=== PATIENT | male | born 1990 | race African-American/Black ===

== ENCOUNTER 2021-01-13 08:01 | Emergency (ER) | payer SELFPAY ==
[~2021-01-13] VITALS: Ht 177.8 cm; Wt 63.6 kg
--- NOTE | 2021-01-13 08:13 | PHYS DOC ---
Past History Past Medical History: Seizure Smoking: Non-smoker Alcohol Use: Occasionally Drug Use: Marijuana Adult General Chief Complaint Chief Complaint: SEIZURE [facility] HPI Patient is a 30-year-old male presenting via EMS for seizure. Patient had a total of 5 seizures this morning, all of which were observed and reported as tonic-clonic in nature. He has a known history of seizures, was diagnosed about 5 years ago. States he has had " a few seizures a year" since that time. Admits he has had significant work-up in outpatient setting by [facility] team, has had prior blood work, CT head, MRI and EEGs that have all been nonconcerning. He subsequently has not been on and not required any antiepileptic medications. States besides seizures he has no other medical issues. Reports it is proposed that his seizures are due to ongoing marijuana abuse. Also admits to occasional alcohol abuse but denies any dependence or history of withdrawals or delirium tremens. Reports yesterday he did not have anything to drink but admits smoking several blunts. He also reported having a headache for which he took an unknown medication from a friend. Denies any falls or trauma but this morning was found to have x5 seizures as discussed all lasting less than 1 minute in nature. Seizures self resolved without any intervention. EMS was finally called after the fifth seizure which worried bystander. On arrival, patient was found to be slightly tachycardic otherwise hemodynamically stable and postictal. On arrival, patient remains postictal, states feelings are similar to prior postictal state. Denies any other major changes in health, no recent febrile illness, recent sick contacts, change in medication Review of Systems Review of Systems Fourteen body systems of review of systems have been reviewed. See HPI for tyson garnica positives and negative responses, other cat all other systems are negative, non-pertinent or non-contributory Physical Exam Physical Exam Constitutional: Well developed, well nourished, no acute distress, non-toxic ap pearance. HENT: Normocephalic, atraumatic, bilateral external ears normal, oropharynx moist, no oral exudates, nose normal. Eyes: PERRLA, EOMI, conjunctiva normal, no discharge. Neck: Normal range of motion, no tenderness, supple, no stridor. Cardiovascular: Heart rate regular, sinus rhythm, no murmurs rubs or gallops Lungs & Thorax: Bilateral breath sounds clear to auscultation Abdomen: Bowel sounds normal, soft, no tenderness, no masses, no pulsatile masses. Nonsurgical abdomen, no peritoneal signs Skin: Warm, dry, no erythema, no rash. Back: No tenderness, no CVA tenderness. Extremities: No tenderness, no cyanosis, no clubbing, ROM intact, no edema. Neurologic: Alert and oriented X 3, cranial nerves II through XII intact, normal motor & sensory function, no focal deficits noted. Psychologic: Affect normal, judgement normal, mood normal. Current Patient Data Vital Signs Vital Signs Date Time Temp Pulse Resp B/P (MAP) Pulse Ox O2 Delivery O2 Flow Rate FiO2 01/13/21 09:10 98.1 84 16 144/77 (99) 96 Room Air Vital Signs Date Time Temp Pulse Resp B/P (MAP) Pulse Ox O2 Delivery O2 Flow Rate FiO2 01/13/21 09:10 98.1 84 16 144/77 (99) 96 Room Air Lab Results Current Medications Medications (Trade) Dose Ordered Sig/Chase Route PRN Reason Start Time Stop Time Status Last Admin Dose Admin Sodium Chloride 1,000 ml @ 1,000 mls/hr 1X ONCE IV 01/13/21 08:45 01/13/21 09:44 DC 01/13/21 10:03 Ondansetron HCl (Zofran) 4 mg 1X ONCE IVP 01/13/21 08:45 01/13/21 08:46 DC 01/13/21 10:03 EKG EKG EKG ordered and interpreted by myself at 0830 hrs. as sinus rhythm at 64 bpm, unremarkable intervals, no axis deviation, no ischemic findings or concerning bundle branch blocks, no STEMI Radiology/Procedures Radiology/Procedures [] Heart Score C/O Chest Pain: No HEART Score for Chest Pain: HEART Score for Chest Pain Response (Comments) Value History Slighlty/Non-Suspicious 0 ECG Normal 0 Age < 45 0 Risk Factors No Risk Factors 0 Troponin < Normal Limit 0 Total 0 Risk Factors: Risk Factors: DM, Current or recent (<one month) smoker, HTN, HLP, family history of CAD, obesity. Risk Scores: Risk Factors: DM, Current or recent (<one month) smoker, HTN, HLP, family history of CAD, obesity. Course & Med Decision Making Course & Med Decision Making ABCs unremarkable. I disclosed entirety of ER findings and discussed most likely diagnosis of seizure. Patient states he has had comprehensive seizure work-up in the past that included CT head, MRI head and EEG, states there was no obvious cause for his seizures and has not been on any medication? I question this, seizures likely due to ongoing alcohol versus illicit drug abuse. Other diagnoses were discussed with patient such as intracranial abnormalities and other potentially life-threatening diagnoses but all deemed less likely causes of patient's presentation. Patient's post ictal. Resolved without any significant intervention. Labs grossly unremarkable. Joint decision to defer any intracranial imaging given history of extensive work-up in the recent past. Ultimately, plan of care discussed at length with need for close outpatient follow-up to review today's ER visit stressed. Strict return precautions were also discussed at length with good understanding verbalized by patient. Patient voiced understanding and agreement with the plan. Patient knows to come back for repeat evaluation if concerning signs or symptoms present prior to outpatient follow-up. Hemodynamically stable, ambulatory and well-appearing at time of disposition. Dragon Disclaimer Dragon Disclaimer This electronic medical record was generated, in whole or in part, using a voice recognition dictation system. Departure Departure: Impression: Primary Impression: Seizure Disposition: 01 HOME / SELF CARE / HOMELESS Condition: STABLE Patient Instructions: Seizure, Adult Additional Instructions: It is unclear what caused your seizure. You should follow up with medicine and neurology if you continue to have poor seizure control. Return to the ED if you develop increased seizures, more than one seizure in a row without returning to normal, seizure longer than 5 minutes, or any other new or concerning symptoms. You should not drive or operate machinery until you are cleared by a neurologist or your medicine doctor. DEON PECK DO Jan 13, 2021 08:13
[2021-01-13] MEDS ORDERED: ONDANSETRON PF 4 MG/2 ML VIAL. IVP ONE (08:45)
[2021-01-13] MEDS ORDERED: IV NORMAL SALINE 1,000ML 1,000 ML IV ONE (08:45)
[2021-01-13 08:53] LABS: BASO # 0.1 x10^3/uL (0.0-0.2); BASO % 1 % (0-3); CALCIUM 9.6 mg/dL (8.5-10.1); CREATININE 1.1 mg/dL (0.7-1.3); EOS # 0.2 x10^3/uL (0.0-0.7); EOS % 4 % (0-3); GFR 79.1; HEMATOCRIT 45.3 % (39.0-53.0); HEMOGLOBIN 14.3 g/dL (13.0-17.5); LYMPH # 2.3 x10^3/uL (1.0-4.8); LYMPH % 37 % (24-48); MEAN CORPUSCULAR HEMOGLOBIN 28 pg (25-35); MEAN CORPUSCULAR HGB CONC 32 g/dL (31-37); MEAN CORPUSCULAR VOLUME 90 fL (79-100); MONO # 0.4 x10^3/uL (0.0-1.1); MONO % 7 % (0-9); NEUT # 3.2 x10^3uL (1.8-7.7); NEUT % 51 % (31-73); PLATELET COUNT 269 x10^3/uL (140-400); POTASSIUM 4.4 mmol/L (3.5-5.1); RED BLOOD COUNT 5.03 x10^6/uL (4.30-5.70); RED CELL DISTRIBUTION WIDTH 14.3 % (11.5-14.5); WHITE BLOOD COUNT 6.3 x10^3/uL (4.0-11.0)
[2021-01-13 08:59] LABS: ALBUMIN 4.1 g/dL (3.4-5.0); TOTAL BILIRUBIN 0.3 mg/dL (0.2-1.0); TOTAL PROTEIN 8.2 g/dL (6.4-8.2)
--- NOTE | 2021-01-13 09:05 | EKG ---
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
[2021-01-13 09:10] VITALS: BP 144/77
[2021-01-13 09:42] LABS: AMPHETAMINE/METHAMPHETAMINE NEG (NEG); BARBITURATES NEG (NEG); BENZODIAZEPINES NEG (NEG); CANNABINOIDS POS (NEG); COCAINE NEG (NEG); METHADONE NEG (NEG); OPIATES NEG (NEG); PHENCYCLIDINE NEG (NEG)
[2021-01-13 10:05] LABS: BACTERIA,URINE 0 /HPF (0-FEW); BILIRUBIN,URINE NEG (NEG); CLARITY,URINE CLEAR; COLOR,URINE YELLOW; GLUCOSE,URINE NEG (NEG); NITRITE,URINE NEG (NEG); RBC,URINE OCC /HPF (0-2); SQUAMOUS EPITHELIAL CELL,UR OCC /LPF; UROBILINOGEN,URINE 0.2 mg/dL (0.2 mg/dL); WBC,URINE OCC /HPF (0-4)
== END 2021-01-13 10:08 | disposition home or self-care (01) ==
LOC: ER 08:01
DX: R56.9 Unspecified convulsions (principal); F12.10 Cannabis abuse, uncomplicated
CPT/HCPCS: 36415; 80053; 80307; 81001; 84484; 85025; 93005; 96374; 99284; G0480; J2405; J7030